=== PATIENT | female | born 2000 | race Caucasian/White ===

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

== ENCOUNTER → 2020-06-23 10:47 | Outpatient (CLI) | payer OTHER, SELFPAY ==
--- NOTE | 2020-07-20 08:08 | PM.CARDMON.1 ---
Air Bag Buffer Report Referral & Results Date Patient Seen: 06/23/20 Requesting provider: Kitty Sepulveda Indication: Palpitations Duration of monitoring (days): 7 Diary information: There were 16 patient triggered events and 6 patient diary entries Patient triggered events were associated with (within 45 seconds) sinus rhythm and nonsustained ventricular tachycardia Diary events were associated with (within 45 seconds) sinus rhythm only Data: Minimum heart rate identified was 43 beats per minute at 06:09 on 06/28/2020 Maximum sinus heart rate was 171 beats per minute at 18:14 on 06/25/2020 Maximum overall heart rate was 190 beats per minute at 23:03 on 06/23/2020 during a 6 beat run of nonsustained monomorphic ventricular tachycardia Less than 1% of identified beats or either ventricular supraventricular ectopic in origin There was only the 1 run of ventricular tachycardia, and this looks somewhat atypical in appearance with fairly narrow complexes Impression: 7 day lunchroom monitor there is essentially normal with the exception of a single 4 beat run of either ventricular tachycardia or potentially an accelerated supraventricular origin Clinical correlation suggested
== END ==
PROVIDERS: PCP Family Medicine; Referring Provider Family Medicine; Visit Provider Family Medicine
DX: R00.2 Palpitations (principal)
CPT/HCPCS: 0296T; 0298T

== ENCOUNTER → 2020-12-20 19:22 | Outpatient (CLI) | payer OTHER, SELFPAY ==
[2020-12-20 21:29] LABS: Urine N gonorrhoeae NOT DETECTED
[2020-12-20 21:31] LABS: Urine Chlamydia NOT DETECTED
== END ==
PROVIDERS: PCP Family Medicine; Visit Provider Physician Assistant
DX: N89.8 Other specified noninflammatory disorders of vagina (principal); R30.0 Dysuria
CPT/HCPCS: 87086; 87210; 87491; 87591

== ENCOUNTER → 2021-01-31 19:31 | Outpatient (CLI) | payer OTHER, SELFPAY | PROVIDERS: PCP Family Medicine; Visit Provider Physician Assistant | DX: N34.3 Urethral syndrome, unspecified (principal) | CPT/HCPCS: 87077; 87086; 87186 ==